=== PATIENT | female | born 1960 | race Caucasian/White ===

== ENCOUNTER 2017-02-28 09:07 | Observation (INO) | payer MEDICARE, OTHER ==
[2017-02-28] VITALS (19 sets, daily range): BP systolic 120–149; BP diastolic 59–89; PULSE 55–78; RESP 12–27; Ht 170.2 cm; Wt 85.7 kg
[~2017-02-28] VITALS: Ht 170.2 cm; Wt 85.7 kg
[2017-02-28] MEDS ORDERED: PROP60CA PO (09:57)
[2017-02-28] MEDS ORDERED: LEVO137T26 PO (09:58)
[2017-02-28] MEDS ORDERED: LISI-313 PO (09:58)
[2017-02-28] MEDS ORDERED: GLIP-95 PO (09:59)
[2017-02-28] MEDS ORDERED: METF1000 PO (09:59)
[2017-02-28] MEDS ORDERED: INSU100C SQ (10:01)
[2017-02-28] MEDS ORDERED: LANT3I SC (10:02)
[2017-02-28] MEDS ORDERED: ASPI-664 PO (10:02)
[2017-02-28] MEDS ORDERED: RANI150T5 PO (10:02)
[2017-02-28] MEDS ORDERED: CLOP75TA27 PO (10:03)
[2017-02-28] MEDS ORDERED: DEXL60CA2 PO (10:03)
[2017-02-28] MEDS ORDERED: METO10TA96 PO (10:04)
[2017-02-28] MEDS ORDERED: INSULIN REGULAR, HUMAN 100 UNIT/1 ML 3ML VIAL SC ONE (10:30)
[2017-02-28 10:53] LABS: ADD SCAN DIFF NO
[2017-02-28 10:57] LABS: BASOPHILS % 0.5 % (0.0-2.0); EOSINOPHILS # 0.1 10^3/ul (0.0-0.5); EOSINOPHILS % 1.4 % (0.0-7.0); HEMATOCRIT 39.5 % (37.0-47.0); HEMOGLOBIN 13.2 g/dl (12.0-16.0); LYMPHOCYTES # 1.8 10^3/ul (0.8-2.9); MEAN CORPUSCULAR HEMOGLOBIN 29.4 pg (29.0-33.0); MEAN CORPUSCULAR HGB CONC 33.4 g/dl (32.0-37.0); MEAN PLATELET VOLUME 10.5 fl (7.4-10.4); MONOCYTE # 0.4 10^3/ul (0.3-0.9); MONOCYTES % 9.3 % (0.0-11.0); NEUTROPHIL # 2.1 10^3/ul (1.6-7.5); NEUTROPHILS % 47.1 % (39.0-77.0); PLATELET COUNT 207 10^3/UL (140-415); RED BLOOD COUNT 4.49 10^6/ul (4.20-5.40); RED CELL DISTRIBUTION WIDTH 12.5 % (11.5-14.5); WHITE BLOOD COUNT 4.4 10^3/ul (4.8-10.8)
[2017-02-28 11:12] LABS: ANION GAP 18 (8-16); CARBON DIOXIDE 24 mmol/L (21-31); CHLORIDE 104 mmol/L (97-110)
[2017-02-28 11:13] LABS: ALANINE AMINOTRANSFERASE 55 IU/L (13-69); ALBUMIN 4.8 g/dl (3.3-4.9); ALBUMIN/GLOBULIN RATIO 1.54; ALKALINE PHOSPHATASE 63 IU/L (42-121); ASPARTATE AMINO TRANSFERASE 40 IU/L (15-46); BILIRUBIN,INDIRECT 0.4 mg/dl (0-1.1); BILIRUBIN,TOTAL 0.4 mg/dl (0.2-1.3); CHOLESTEROL 175 mg/dl (100-200); CREATINE KINASE 63 IU/L (23-200); HDL CHOLESTEROL 35 mg/dl (37-92); TOTAL PROTEIN 7.9 g/dl (6.1-8.1); TRIGLYCERIDES 426 mg/dl (0-149)
[2017-02-28 11:14] LABS: INR 0.88; POTASSIUM 4.5 mmol/L (3.5-5.1); PROTIME 11.9 Sec (12.2-14.2); PT RATIO 0.9; SODIUM 141 mmol/L (135-144)
[2017-02-28 11:15] LABS: BLOOD UREA NITROGEN 15 mg/dl (7-20); CALCIUM 9.3 mg/dl (8.4-10.2); CREATININE 0.77 mg/dl (0.44-1.00); GLUCOSE 410 mg/dl (70-220); PARTIAL THROMBOPLASTIN TIME 24.7 Sec (25.0-35.0)
[2017-02-28] MEDS ORDERED: LIDOCAINE 1% (MDV) 20 ML INJ ONE (11:21)
[2017-02-28] MEDS ORDERED: HEPARIN 1000 UNITS/NS (A-LINE) 1,000 ML ONE (11:21)
[2017-02-28] MEDS ORDERED: FENTAnyl 50 MCG/ML VIAL ONE (11:21)
[2017-02-28] MEDS ORDERED: MIDAZOLAM 1 MG/ML 2 ML INJ ONE (11:21)
[2017-02-28] MEDS ORDERED: IODIXANOL LOCM 100 ML BTL ONE ×2 (11:21→11:48)
[2017-02-28 11:24] LABS: CK-MB 1.35 ng/ml (0.0-2.4)
[2017-02-28 11:26] LABS: TROPONIN-I < 0.012 ng/ml (0.00-0.12)
[2017-02-28] MEDS ORDERED: CLOPIDOGREL 300 MG TAB ONE (11:58)
[2017-02-28] MEDS ORDERED: SOD CHLORIDE 0.9% 1,000 ML IV SCH (12:11)
[2017-02-28] MEDS ORDERED: ACETAMINOPHEN 325 MG TAB PO PRN (12:30)
[2017-02-28] MEDS ORDERED: ONDANSETRON 4 MG INJ IV PRN (12:30)
[2017-02-28] MEDS ORDERED: morphine 2 MG INJ IV PRN (12:30)
[2017-02-28] MEDS ORDERED: OXYCODONE/ACETAMINOPHEN (5/325) TAB PO PRN (12:30)
[2017-02-28] MEDS ORDERED: GLUCOSE GEL 15 GRAM TUBE BUCCAL PRN (13:00)
[2017-02-28] MEDS ORDERED: DEXTROSE 50% 50 ML SYRINGE IV PRN ×2 (13:00)
[2017-02-28] MEDS ORDERED: GLUCAGON 1 MG INJ IM PRN (13:00)
[2017-02-28] MEDS ORDERED: GLUCOSE GEL 15 GRAM TUBE PO PRN ×2 (13:00)
[2017-02-28] MEDS: INSULIN ASPART [NOVOLOG] 3 ML PEN SC SCH ×2 (13:34→17:33)
--- NOTE | 2017-02-28 17:18 | HP ---
Date/Time of Note Date/Time of Note DATE: 02/28/17 TIME: 17:16 Assessment/Plan Lines/Catheters IV Catheter Type (from [facility]): Peripheral IV Assessment/Plan Chief Complaint/Hosp Course 1. Coronary disease. Status post cardiac cath with PCI. Plan is for observation intensive care unit. Will continue medical management continue aspirin and Plavix. Follow-up cardiology recommendations. 2. Diabetes. Continue Accu-Cheks insulin sliding scale. 3. Dyslipidemia. Continue statin therapy. 4. GERD. Continue PPI 5. Hypertension continue medical management 6. Hypothyroidism continue Synthroid 7. GI DVT prophylaxis continue PPI sequential leg squeezers. Please note spent over 25 minutes of [id number] time with the patient patient' s full code Problems: HPI/ROS Admit Date/Time Admit Date/Time Hx of Present Illness 56-year-old female with past medical history of diabetes who presents to the [facility] to undergo elective cardiac catheterization. Patient stated over the past several days and weeks she is noted to have an shortness of breath and chest pain and outpatient setting. The patient went to see Dr. Vazquez underwent a stress test which was positive. As a result patient underwent cardiac catheterization today. Patient had PCI with stent placement. Following the procedure the patient was taken to recovery room. When she was noted to be stable without any episodes of hemoptysis hematemesis hematochezia. ROS 14 point review of systems conducted pertinent positives in HPI otherwise negative. PMH/Family/Social Past Medical History . HPI per HPI Past Surgical History None Family History Significant Family History: no pertinent family hx Social History Alcohol Use: none Smoking Status: Former smoker Exam/Review of Systems Vital Signs Vitals Vital Signs Date Time Temp Pulse Resp B/P Pulse Ox O2 Delivery O2 Flow Rate FiO2 02/28/17 16:05 98.8 66 19 135/72 97 Room Air Nasal Cannula 02/28/17 13:24 2.0 Exam Exam HEENT. Head is no cephalic atraumatic. Cardiovascular heart regular rate no gallops or clicks Lungs clear to auscultation bilaterally Abdomen soft nontender palpation rebound guarding Extremities are negative for clubbing cyanosis or edema Neurologically. No focal deficits Musculoskeletal no joint effusions Dermatologically no rashes. Labs Result Diagram: 02/28/17 1010 02/28/17 1010 Medications Medications Current Medications Aspirin (Halfprin) 81 mg DAILY PO ; Start 03/01/17 at 09:00 Clopidogrel Bisulfate (plaVIX) 75 mg DAILY PO ; Start 03/01/17 at 09:00 Acetaminophen (Tylenol Tab) 650 mg Q4H PRN PO NON-CARDIAC PAIN LEVEL 1-3; Start 02/28/17 at 12:30 Oxycodone/ Acetaminophen (Percocet (5/ 325)) 1 tab Q4H PRN PO REPORTED NON- CARDIAC PAIN 4-7; Start 02/28/17 at 12:30 Morphine Sulfate (morphine) 1 mg Q1H PRN IV PAIN NOT RELIEVED BY OTHERS; Start 02/28/17 at 12:30 Ondansetron HCl (Zofran Inj) 4 mg Q4H PRN IV NAUSEA AND/OR VOMITING; Start at 12:30 Docusate Sodium (Colace) 100 mg BID PO ; Start 02/28/17 at 21:00 Famotidine 20 mg 20 mg Q12 PO ; Start 02/28/17 at 21:00 Sodium Chloride (NS) 1,000 ml @ 75 mls/hr [id number] IV ; Start 02/28/17 at 12:11 ; Stop 03/01/17 at 01:30 Lisinopril (Zestril) 5 mg DAILY PO ; Start 03/01/17 at 09:00 Pantoprazole (Protonix Tab) 40 mg DAILY@06 PO ; Start 03/01/17 at 06:00 Miscellaneous Information 1 ea NOTE XX ; Start 02/28/17 at 13:00 Glucose (Glutose) 15 gm Q15M PRN PO DECREASED GLUCOSE; Start 02/28/17 at 13:00 Glucose (Glutose) 22.5 gm Q15M PRN PO DECREASED GLUCOSE; Start 02/28/17 at 13: 00 Dextrose (D50w Syringe) 25 ml Q15M PRN IV DECREASED GLUCOSE; Start 02/28/17 at 13:00 Dextrose (D50w Syringe) 50 ml Q15M PRN IV DECREASED GLUCOSE; Start 02/28/17 at 13:00 Glucagon (Glucagen) 1 mg Q15M PRN IM DECREASED GLUCOSE; Start 02/28/17 at 13:00 Glucose (Glutose) 15 gm Q15M PRN BUCCAL DECREASED GLUCOSE; Start 02/28/17 at 13 :00 Diagnostic Test (Pha) (Accu-Chek) 1 ea 02 XX ; Start 03/01/17 at 02:00 Propranolol HCl (Inderal La) 60 mg DAILY PO ; Start 03/01/17 at 09:00 RICARDO COOK DO Feb 28, 2017 17:18
[2017-02-28] MEDS ORDERED: glipiZIDE 10 MG TAB PO SCH (18:00)
[2017-02-28] MEDS ORDERED: FAMOTIDINE 20 MG TAB PO SCH (21:00)
[2017-02-28] MEDS ORDERED: RANITIDINE 150 MG TAB PO SCH (21:00)
[2017-02-28] MEDS ORDERED: DOCUSATE SODIUM 100 MG CAP PO SCH (21:00)
[2017-03-01] VITALS (9 sets, daily range): BP systolic 107–135; BP diastolic 37–68; PULSE 66–75; RESP 14–19
[2017-03-01] MEDS ORDERED: ACCU-CHEK XX SCH (02:00)
[2017-03-01 05:50] LABS: ADD SCAN DIFF NO
[2017-03-01] MEDS ORDERED: PANTOPRAZOLE (EC) 40 MG TAB PO SCH (06:00)
[2017-03-01 06:16] LABS: BASOPHILS % 0.4 % (0.0-2.0); EOSINOPHILS # 0.1 10^3/ul (0.0-0.5); EOSINOPHILS % 1.5 % (0.0-7.0); HEMATOCRIT 37.1 % (37.0-47.0); HEMOGLOBIN 11.9 g/dl (12.0-16.0); LYMPHOCYTES # 2.1 10^3/ul (0.8-2.9); LYMPHOCYTES % 39.9 % (15.0-51.0); MEAN CORPUSCULAR HEMOGLOBIN 28.5 pg (29.0-33.0); MEAN CORPUSCULAR HGB CONC 32.1 g/dl (32.0-37.0); MEAN PLATELET VOLUME 10.6 fl (7.4-10.4); MONOCYTE # 0.3 10^3/ul (0.3-0.9); MONOCYTES % 6.3 % (0.0-11.0); NEUTROPHIL # 2.7 10^3/ul (1.6-7.5); NEUTROPHILS % 51.5 % (39.0-77.0); PLATELET COUNT 191 10^3/UL (140-415); RED BLOOD COUNT 4.17 10^6/ul (4.20-5.40); RED CELL DISTRIBUTION WIDTH 12.7 % (11.5-14.5); WHITE BLOOD COUNT 5.3 10^3/ul (4.8-10.8)
[2017-03-01 06:46] LABS: ALBUMIN 4.2 g/dl (3.3-4.9); ALBUMIN/GLOBULIN RATIO 1.9; BILIRUBIN,INDIRECT 0.6 mg/dl (0-1.1); BILIRUBIN,TOTAL 0.6 mg/dl (0.2-1.3); CHOL/HDL RATIO 5.8 RATIO; MAGNESIUM 1.6 mg/dl (1.7-2.5); TOTAL PROTEIN 6.4 g/dl (6.1-8.1)
[2017-03-01 06:50] LABS: CALCIUM 9.1 mg/dl (8.4-10.2); CREATININE 0.68 mg/dl (0.44-1.00); POTASSIUM 4.3 mmol/L (3.5-5.1)
[2017-03-01] MEDS ORDERED: LEVOTHYROXINE 137 MCG TAB PO SCH (07:00)
[2017-03-01] MEDS: INSULIN ASPART [NOVOLOG] 3 ML PEN SC SCH (07:33)
[2017-03-01] MEDS ORDERED: BIVALIRUDIN 250MG /NS 50 ML 50 ML IVPB ONE (07:50)
--- NOTE | 2017-03-01 08:37 | PN ---
Date/Time of Note Date/Time of Note DATE: 03/01/17 TIME: 08:35 Assessment/Plan Lines/Catheters IV Catheter Type (from [facility]): Peripheral IV Assessment/Plan Chief Complaint/Hosp Course 1. Coronary disease. Status post cardiac cath with PCI. Plan is for observation intensive care unit. Will continue medical management continue aspirin and Plavix. Follow-up cardiology recommendations. 2. Diabetes. Continue Accu-Cheks insulin sliding scale. Resume home diabetic regimen 3. Dyslipidemia. Continue medical management 4. GERD. Continue PPI 5. Hypertension continue medical management 6. Hypothyroidism continue Synthroid 7. GI DVT prophylaxis continue PPI sequential leg squeezers. Please note spent over 25 minutes of [id number] time with the patient patient' s full code Problems: Subjective 24 Hr Interval Summary Free Text/Dictation Patient clinically stable. Blood sugars are mildly elevated. Will give extra dose of insulin this morning. Resume patient's home medications. Possible discharge today after cleared by cardiology Exam/Review of Systems Vital Signs Vitals Vital Signs Date Time Temp Pulse Resp B/P Pulse Ox O2 Delivery O2 Flow Rate FiO2 03/01/17 07:10 18 107/65 95 Room Air 03/01/17 04:00 70 02/28/17 21:30 97.8 02/28/17 13:24 2.0 Intake and Output 02/28/17 02/28/17 03/01/17 15:00 23:00 07:00 Intake Total 618 ml 80 ml Output Total 300 ml 750 ml Balance 318 ml -670 ml Exam HEENT. Head is no cephalic atraumatic. Cardiovascular heart regular rate no gallops or clicks Lungs clear to auscultation bilaterally Abdomen soft nontender palpation rebound guarding Extremities are negative for clubbing cyanosis or edema Neurologically. No focal deficits Musculoskeletal no joint effusions Dermatologically no rashes. Results Result Diagram: 03/01/17 0513 03/01/17 0513 Results 24 hrs Laboratory Tests Test 02/28/17 10:10 02/28/17 10:15 02/28/17 12:24 02/28/17 13:20 White Blood Count 4.4 L Red Blood Count 4.49 Hemoglobin 13.2 Hematocrit 39.5 Mean Corpuscular Volume 88.0 Mean Corpuscular Hemoglobin 29.4 Mean Corpuscular Hemoglobin Concent 33.4 Red Cell Distribution Width 12.5 Platelet Count 207 Mean Platelet Volume 10.5 H Neutrophils % 47.1 Lymphocytes % 41.0 Monocytes % 9.3 Eosinophils % 1.4 Basophils % 0.5 Nucleated Red Blood Cells % 0.0 Neutrophils # 2.1 Lymphocytes # 1.8 Monocytes # 0.4 Eosinophils # 0.1 Basophils # 0.0 Nucleated Red Blood Cells # 0.0 Prothrombin Time 11.9 L Prothrombin Time Ratio 0.9 INR International Normalized Ratio 0.88 Activated Partial Thromboplast Time 24.7 L Sodium Level 141 Potassium Level 4.5 Chloride Level 104 Carbon Dioxide Level 24 Anion Gap 18 H Blood Urea Nitrogen 15 Creatinine 0.77 Glucose Level 410 *H Calcium Level 9.3 Total Bilirubin 0.4 Direct Bilirubin 0.00 Indirect Bilirubin 0.4 Aspartate Amino Transf (AST/SGOT) 40 Alanine Aminotransferase (ALT/SGPT) 55 Alkaline Phosphatase 63 Creatine Kinase 63 Creatine Kinase Index 2.1 Creatinine Kinase MB (Mass) 1.35 Troponin I < 0.012 Total Protein 7.9 Albumin 4.8 Globulin 3.10 Albumin/Globulin Ratio 1.54 Triglycerides Level 426 H Cholesterol Level 175 LDL Cholesterol, Calculated 55 HDL Cholesterol 35 L Cholesterol/HDL Ratio 5.0 Bedside Glucose 385 H 333 H 300 H Test 02/28/17 17:14 03/01/17 01:45 03/01/17 05:13 03/01/17 07:06 Bedside Glucose 278 H 249 H 332 H White Blood Count 5.3 # Red Blood Count 4.17 L Hemoglobin 11.9 L Hematocrit 37.1 Mean Corpuscular Volume 89.0 Mean Corpuscular Hemoglobin 28.5 L Mean Corpuscular Hemoglobin Concent 32.1 Red Cell Distribution Width 12.7 Platelet Count 191 Mean Platelet Volume 10.6 H Neutrophils % 51.5 Lymphocytes % 39.9 Monocytes % 6.3 Eosinophils % 1.5 Basophils % 0.4 Nucleated Red Blood Cells % 0.0 Neutrophils # 2.7 Lymphocytes # 2.1 Monocytes # 0.3 Eosinophils # 0.1 Basophils # 0.0 Nucleated Red Blood Cells # 0.0 Sodium Level 139 Potassium Level 4.3 Chloride Level 106 Carbon Dioxide Level 22 Anion Gap 15 Blood Urea Nitrogen 18 Creatinine 0.68 Glucose Level 326 H Hemoglobin A1c 11.9 H Calcium Level 9.1 Magnesium Level 1.6 L Total Bilirubin 0.6 Direct Bilirubin 0.00 Indirect Bilirubin 0.6 Aspartate Amino Transf (AST/SGOT) 32 Alanine Aminotransferase (ALT/SGPT) 47 Alkaline Phosphatase 50 Creatine Kinase 45 Total Protein 6.4 # Albumin 4.2 Globulin 2.20 Albumin/Globulin Ratio 1.90 Triglycerides Level 505 H Cholesterol Level 163 LDL Cholesterol, Calculated 34 HDL Cholesterol 28 L Cholesterol/HDL Ratio 5.8 Medications Medications Current Medications Aspirin (Halfprin) 81 mg DAILY PO ; Start 03/01/17 at 09:00 Clopidogrel Bisulfate (plaVIX) 75 mg DAILY PO ; Start 03/01/17 at 09:00 Acetaminophen (Tylenol Tab) 650 mg Q4H PRN PO NON-CARDIAC PAIN LEVEL 1-3; Start 02/28/17 at 12:30 Oxycodone/ Acetaminophen (Percocet (5/ 325)) 1 tab Q4H PRN PO REPORTED NON- CARDIAC PAIN 4-7 Last administered on 03/01/17 05:01; Admin Dose 1 TAB; Start 02/28/17 at 12:30 Morphine Sulfate (morphine) 1 mg Q1H PRN IV PAIN NOT RELIEVED BY OTHERS; Start 02/28/17 at 12:30 Ondansetron HCl (Zofran Inj) 4 mg Q4H PRN IV NAUSEA AND/OR VOMITING; Start at 12:30 Docusate Sodium (Colace) 100 mg BID PO Last administered on 02/28/17 21:21; Admin Dose 100 MG; Start 02/28/17 at 21:00 Famotidine (Pepcid) 20 mg Q12 PO Last administered on 02/28/17 21:21; Admin Dose 20 MG; Start 02/28/17 at 21:00 Lisinopril (Zestril) 5 mg DAILY PO ; Start 03/01/17 at 09:00 Pantoprazole (Protonix Tab) 40 mg DAILY@06 PO Last administered on 03/01/17 06 :02; Admin Dose 40 MG; Start 03/01/17 at 06:00 Miscellaneous Information 1 ea NOTE XX ; Start 02/28/17 at 13:00 Glucose (Glutose) 15 gm Q15M PRN PO DECREASED GLUCOSE; Start 02/28/17 at 13:00 Glucose (Glutose) 22.5 gm Q15M PRN PO DECREASED GLUCOSE; Start 02/28/17 at 13: 00 Dextrose (D50w Syringe) 25 ml Q15M PRN IV DECREASED GLUCOSE; Start 02/28/17 at 13:00 Dextrose (D50w Syringe) 50 ml Q15M PRN IV DECREASED GLUCOSE; Start 02/28/17 at 13:00 Glucagon (Glucagen) 1 mg Q15M PRN IM DECREASED GLUCOSE; Start 02/28/17 at 13:00 Glucose (Glutose) 15 gm Q15M PRN BUCCAL DECREASED GLUCOSE; Start 02/28/17 at 13 :00 Diagnostic Test (Pha) (Accu-Chek) 1 ea 02 XX ; Start 03/01/17 at 02:00 Propranolol HCl 60 mg 60 mg DAILY PO ; Start 03/01/17 at 09:00 Magnesium Sulfate (Magnesium Sulfate 2 Gm/50 ml) 50 ml @ 25 mls/hr ONCE ONCE IVPB Last administered on 03/01/17t 07:51; Admin Dose 25 MLS/HR; Start at 09:00; Stop 03/01/17 at 10:59 RICARDO COOK DO Mar 01, 2017 08:37
[2017-03-01] MEDS ORDERED: MAGNESIUM SULFATE 2 GM/50 ML 50 ML IVPB ONE (09:00)
[2017-03-01] MEDS ORDERED: CLOPIDOGREL 75 MG TAB PO SCH ×2 (09:00)
[2017-03-01] MEDS ORDERED: LISINOPRIL 5 MG TAB PO SCH (09:00)
[2017-03-01] MEDS ORDERED: PROPRANOLOL 20 MG TAB PO SCH (09:00)
[2017-03-01] MEDS ORDERED: PROPRANOLOL (LA) 60 MG CAP PO SCH (09:00)
[2017-03-01] MEDS ORDERED: ASPIRIN (EC) 81 MG TAB PO SCH ×2 (09:00)
--- NOTE | 2017-03-01 09:21 | PN ---
Date/Time of Note Date/Time of Note DATE: 03/01/17 TIME: 09:18 Assessment/Plan VTE Prophylaxis VTE Prophylaxis Intervention: ambulation Lines/Catheters IV Catheter Type (from Nrs): Peripheral IV Assessment/Plan Chief Complaint/Hosp Course 1. CAD 2. ANGINA 3. S/P PCI LAD 4. DM 5. Dyslipidemia REC: cont ASA PLAVIX will replace Mg I have given pt a prescription for crestor 5 qhs and Vascepa to go home with dc planning today Problems: Subjective 24 Hr Interval Summary Free Text/Dictation d/w staff and Dr Fatima \pt with mild oozing at the groin no chest pain mild tenderness at groin Exam/Review of Systems Vital Signs Vitals Vital Signs Date Time Temp Pulse Resp B/P Pulse Ox O2 Delivery O2 Flow Rate FiO2 03/01/17 07:10 18 107/65 95 Room Air 03/01/17 04:00 70 02/28/17 21:30 97.8 02/28/17 13:24 2.0 Intake and Output 02/28/17 02/28/17 03/01/17 15:00 23:00 07:00 Intake Total 618 ml 80 ml Output Total 300 ml 750 ml Balance 318 ml -670 ml Exam vascular: R femoral no bleeding now. no hematoma. no bruit Constitutional: alert, oriented Psych: nl mood/affect, no complaints Head: atraumatic, normocephalic ENMT: nl external ears & nose Neck: non-tender, supple Respiratory: clear to auscultation Cardiovascular: nl pulses, regular rate and rhythm Gastrointestinal: soft Results Result Diagram: 03/01/17 0513 03/01/17 0513 Results 24 hrs Laboratory Tests Test 02/28/17 10:10 02/28/17 10:15 02/28/17 12:24 02/28/17 13:20 White Blood Count 4.4 L Red Blood Count 4.49 Hemoglobin 13.2 Hematocrit 39.5 Mean Corpuscular Volume 88.0 Mean Corpuscular Hemoglobin 29.4 Mean Corpuscular Hemoglobin Concent 33.4 Red Cell Distribution Width 12.5 Platelet Count 207 Mean Platelet Volume 10.5 H Neutrophils % 47.1 Lymphocytes % 41.0 Monocytes % 9.3 Eosinophils % 1.4 Basophils % 0.5 Nucleated Red Blood Cells % 0.0 Neutrophils # 2.1 Lymphocytes # 1.8 Monocytes # 0.4 Eosinophils # 0.1 Basophils # 0.0 Nucleated Red Blood Cells # 0.0 Prothrombin Time 11.9 L Prothrombin Time Ratio 0.9 INR International Normalized Ratio 0.88 Activated Partial Thromboplast Time 24.7 L Sodium Level 141 Potassium Level 4.5 Chloride Level 104 Carbon Dioxide Level 24 Anion Gap 18 H Blood Urea Nitrogen 15 Creatinine 0.77 Glucose Level 410 *H Calcium Level 9.3 Total Bilirubin 0.4 Direct Bilirubin 0.00 Indirect Bilirubin 0.4 Aspartate Amino Transf (AST/SGOT) 40 Alanine Aminotransferase (ALT/SGPT) 55 Alkaline Phosphatase 63 Creatine Kinase 63 Creatine Kinase Index 2.1 Creatinine Kinase MB (Mass) 1.35 Troponin I < 0.012 Total Protein 7.9 Albumin 4.8 Globulin 3.10 Albumin/Globulin Ratio 1.54 Triglycerides Level 426 H Cholesterol Level 175 LDL Cholesterol, Calculated 55 HDL Cholesterol 35 L Cholesterol/HDL Ratio 5.0 Bedside Glucose 385 H 333 H 300 H Test 02/28/17 17:14 03/01/17 01:45 03/01/17 05:13 03/01/17 07:06 Bedside Glucose 278 H 249 H 332 H White Blood Count 5.3 # Red Blood Count 4.17 L Hemoglobin 11.9 L Hematocrit 37.1 Mean Corpuscular Volume 89.0 Mean Corpuscular Hemoglobin 28.5 L Mean Corpuscular Hemoglobin Concent 32.1 Red Cell Distribution Width 12.7 Platelet Count 191 Mean Platelet Volume 10.6 H Neutrophils % 51.5 Lymphocytes % 39.9 Monocytes % 6.3 Eosinophils % 1.5 Basophils % 0.4 Nucleated Red Blood Cells % 0.0 Neutrophils # 2.7 Lymphocytes # 2.1 Monocytes # 0.3 Eosinophils # 0.1 Basophils # 0.0 Nucleated Red Blood Cells # 0.0 Sodium Level 139 Potassium Level 4.3 Chloride Level 106 Carbon Dioxide Level 22 Anion Gap 15 Blood Urea Nitrogen 18 Creatinine 0.68 Glucose Level 326 H Hemoglobin A1c 11.9 H Calcium Level 9.1 Magnesium Level 1.6 L Total Bilirubin 0.6 Direct Bilirubin 0.00 Indirect Bilirubin 0.6 Aspartate Amino Transf (AST/SGOT) 32 Alanine Aminotransferase (ALT/SGPT) 47 Alkaline Phosphatase 50 Creatine Kinase 45 Total Protein 6.4 # Albumin 4.2 Globulin 2.20 Albumin/Globulin Ratio 1.90 Triglycerides Level 505 H Cholesterol Level 163 LDL Cholesterol, Calculated 34 HDL Cholesterol 28 L Cholesterol/HDL Ratio 5.8 Medications Medications Current Medications Aspirin (Halfprin) 81 mg DAILY PO ; Start 03/01/17 at 09:00 Clopidogrel Bisulfate (plaVIX) 75 mg DAILY PO ; Start 03/01/17 at 09:00 Acetaminophen (Tylenol Tab) 650 mg Q4H PRN PO NON-CARDIAC PAIN LEVEL 1-3; Start 02/28/17 at 12:30 Oxycodone/ Acetaminophen (Percocet (5/ 325)) 1 tab Q4H PRN PO REPORTED NON- CARDIAC PAIN 4-7 Last administered on 03/01/17 05:01; Admin Dose 1 TAB; Start 02/28/17 at 12:30 Morphine Sulfate (morphine) 1 mg Q1H PRN IV PAIN NOT RELIEVED BY OTHERS; Start 02/28/17 at 12:30 Ondansetron HCl (Zofran Inj) 4 mg Q4H PRN IV NAUSEA AND/OR VOMITING; Start at 12:30 Docusate Sodium (Colace) 100 mg BID PO Last administered on 02/28/17 21:21; Admin Dose 100 MG; Start 02/28/17 at 21:00 Famotidine (Pepcid) 20 mg Q12 PO Last administered on 02/28/17 21:21; Admin Dose 20 MG; Start 02/28/17 at 21:00 Lisinopril (Zestril) 5 mg DAILY PO ; Start 03/01/17 at 09:00 Pantoprazole (Protonix Tab) 40 mg DAILY@06 PO Last administered on 03/01/17 06 :02; Admin Dose 40 MG; Start 03/01/17 at 06:00 Miscellaneous Information 1 ea NOTE XX ; Start 02/28/17 at 13:00 Glucose (Glutose) 15 gm Q15M PRN PO DECREASED GLUCOSE; Start 02/28/17 at 13:00 Glucose (Glutose) 22.5 gm Q15M PRN PO DECREASED GLUCOSE; Start 02/28/17 at 13: 00 Dextrose (D50w Syringe) 25 ml Q15M PRN IV DECREASED GLUCOSE; Start 02/28/17 at 13:00 Dextrose (D50w Syringe) 50 ml Q15M PRN IV DECREASED GLUCOSE; Start 02/28/17 at 13:00 Glucagon (Glucagen) 1 mg Q15M PRN IM DECREASED GLUCOSE; Start 02/28/17 at 13:00 Glucose (Glutose) 15 gm Q15M PRN BUCCAL DECREASED GLUCOSE; Start 02/28/17 at 13 :00 Diagnostic Test (Pha) (Accu-Chek) 1 ea 02 XX ; Start 03/01/17 at 02:00 Propranolol HCl 60 mg 60 mg DAILY PO ; Start 03/01/17 at 09:00 Magnesium Sulfate (Magnesium Sulfate 2 Gm/50 ml) 50 ml @ 25 mls/hr ONCE ONCE IVPB Last administered on 03/01/17t 07:51; Admin Dose 25 MLS/HR; Start at 09:00; Stop 03/01/17 at 10:59 ALESSIA MORALES MD Mar 01, 2017 09:21
--- NOTE | 2017-03-01 10:33 | RADRPT ---
Vent Rate: 64 bpm RR Interval: 0 msec OH Interval: 170 msec QRS Duration: 88 msec QT Interval: 444 msec QTC Interval: 458 msec P-R-T [place]: 40 - 47 - 56 degrees Normal sinus rhythm Normal ECG Electronically Signed By: Christos Dobbs [id number]
--- NOTE | 2017-03-03 13:05 | OPR ---
Date/Time of Note Date/Time of Note DATE: 03/03/17 TIME: 12:56 Operative Report Procedure Date: Feb 28, 2017 Preoperative Diagnosis angina and markedly abnormal stress test showing high risk CAD Operative\Procedure Findings Merchant Banker: Alessia Petty MD Indication: ANGINA AND ABNORMAL STRESS TEST Procedure performed: #1 left heart catheterization and selective right and left coronary angiogram. #2 Right femoral angiogram and closure using Perclose device 3. Successful PTCA and stenting of Mid LAD using a 2.5X28 mm synergy MARTIN. 4. Moderate sedation for more than 90 minutes Findings: Left main coronary artery: Is normal Left anterior descending artery: Is very small and diffusely diseased 50% proximal stenosis and a 99% mid stenosis. After successful PCI there was no significant residual stenosis left. Ramus intermediate: There is a small V 50% stenosis. Left circumflex artery: Is very small and gives up to one obtuse marginal. It has about 95% stenosis. Right coronary artery is large dominant vessel. It is about 50% stenosis. LV systolic pressure is 169. LVEDP is 16. Appreciable pullback is 173/72. Written informed consent with obtained after risks benefits and alternatives discussed with the patient in detail. risks including but not limited to risk of infection vascular complications, bleeding complications, [place] stroke arrhythmia renal failure at even were discussed with the patient in detail. Patient was brought into the cardiac quality assurance qa lab technician and placed in supine position. Right and left groin area was prepped and draped in regular sterile fashion and then he was in anesthetized using 1% lidocaine. Right femoral artery was cannulated and using modified seldinger technique a 6 Nepali sheath was placed in the right femoral artery. Right femoral angiogram was performed. JL4 catheter was advanced and engaged into the left main coronary artery and angiographic view was obtained. The JR4 catheter was advanced and engaged right coronary artery angiographic view was obtained. Pigtail was advanced to engage the left ventricle hemodynamics as recorded by pullback aortic pressure was measured. At this time we decided to perform PCI of the mid LAD artery. A guiding head was advanced to engage the artery. BMW wire was used and advanced across the lesion and placed distal to the artery. I used a 2.0 balloon which was placed across the lesion and predilated the vessel. Then I used a 2 5 x 28 mm Synergy stent which was placed across the lesion and deployed at 12 pepper. Final angiographic view was obtained which showed MONICA-3 flow no evidence of dissection and no significant residual stenosis at the site of the stent. perclose was successfully deployed. Patient tolerated the procedure well with no complication. Patient was transferred to ICU in stable condition. contrast used: 95 cc Conclusions: Successful PTCA stenting of the mid LAD artery from 99% stenosis to no significant residual stenosis using a 2.5 x 28 mm Synergy stent. Recommendations: Aggressive medical therapy. aspirin indefinitely dual antiplatlet therapy ICU care overnight. ALESSIA PETTY MD Mar 03, 2017 13:05
== END 2017-03-01 10:30 | disposition home or self-care (01) ==
LOC: SDS 09:07 → REC 12:16 → SDS 23:27
PROVIDERS: ADMIT Internal Medicine Interventional Cardiology; ATTEND Internal Medicine Interventional Cardiology
DX: I25.119 Atherosclerotic heart disease of native coronary artery with unspecified angina pectoris (principal); E11.9 Type 2 diabetes mellitus without complications; E78.5 Hyperlipidemia, unspecified; I10 Essential (primary) hypertension; E03.9 Hypothyroidism, unspecified; K21.9 Gastro-esophageal reflux disease without esophagitis
CPT/HCPCS: 80053; 80061; 82550; 82553; 82962; 83036; 83735; 84484; 85025; 85610; 85730; 93005; 93458; C1725; C1760; C1769; C1874; C1887; C9600; G0378; J0583; J1644; J1815; J2250; J3010; J3475; Q9967